=== PATIENT | female | born 1960 | race Two or more races ===

== ENCOUNTER → 2024-12-31 | Outpatient (CLI) | payer MEDICARE, MEDICAID, SELFPAY ==
--- NOTE | 2024-12-31 14:00 | XR_ITS ---
Examination: Bone densitometry Date and time of exam:December 31, 2024 1416 hours INDICATIONS: Menopause age 51 vitamin D 5 years Technique: Lumbar spine and hip total bone mineralization values of an calculated. Peak reference and age match control results have been displayed. Findings: Lumbar spine total bone mineralization is1.159 gm/cm2. This is 1.0 standard deviations above peak reference. This is 2.8 standard deviations above age-matched controls. Hip total bone mineralization is 0.988 gm/cm2 This is 0.2 standard deviations above peak reference. This is 1.3 standard deviations above age-matched controls Impression: There is normal mineralization based on lumbar spine measurements. There is normal mineralization based on hip measurements
== END | disposition home or self-care (01) ==
LOC: CDIM 13:54
PROVIDERS: Referring Provider Nurse Practitioner Primary Care; Visit Provider Nurse Practitioner Primary Care
DX: Z78.0 Asymptomatic menopausal state (principal)
CPT/HCPCS: 77080

== ENCOUNTER → 2025-05-12 | Outpatient (CLI) | payer MEDICARE, MEDICAID, SELFPAY ==
--- NOTE | 2025-05-12 13:30 | XR_ITS ---
Examination: Retroperitoneal ultrasound, complete Technique: Multiple high resolution grayscale images of the retroperitoneum obtained, including kidneys and bladder. Exam date and time:May 12, 2025 1404 hours INDICATIONS: Left-sided flank pain beginning 2 years ago FINDINGS: Right kidney 8.7 cm cortex 1.2 cm Left kidney 9.0 cm cortex 1.1 cm Lower pole left renal cyst 13 x 14 mm There appears to be free fluid above the left kidney Mild renal pedicle scar formation Contracted urinary bladder IMPRESSION: Small kidneys with bilateral renal cortical thinning No hydronephrosis There appears to be free fluid above the left kidney, consider CT scan abdomen pelvis without contrast follow-up
== END | disposition home or self-care (01) ==
PROVIDERS: PCP Nurse Practitioner Primary Care; Referring Provider Nurse Practitioner Primary Care; Visit Provider Nurse Practitioner Primary Care
DX: N27.1 Small kidney, bilateral (principal); N18.9 Chronic kidney disease, unspecified
CPT/HCPCS: 76770

== ENCOUNTER → 2025-06-05 | Outpatient (CLI) | payer MEDICARE, MEDICAID, SELFPAY ==
--- NOTE | 2025-06-05 13:45 | XR_ITS ---
Examination: Screening digital mammography, bilateral Computer aided detection 3-D breast Tomosynthesis, bilateral Date and time of exam: June 05, 2025 1338 hours Indication: Screening Technique: Nonmagnified MLO, CC views of the breasts to been obtained, reconstructed from 3-D Tomosynthesis images. R2 computer aided detection program utilized for evaluation of suspicious masses and/or abnormal calcifications. 3-D Tomosynthesis images obtained. Findings: Scattered areas of fibroglandular density Benign calcifications. No suspicious masses Impression: BI-RADS category II: Benign Findings. Recommend 1 year follow-up mammogram.
== END | disposition home or self-care (01) ==
LOC: CDIM 13:28
PROVIDERS: Referring Provider Nurse Practitioner Primary Care; Visit Provider Nurse Practitioner Primary Care
DX: Z12.31 Encounter for screening mammogram for malignant neoplasm of breast (principal); R92.323 Mammographic fibroglandular density, bilateral breasts; R92.1 Mammographic calcification found on diagnostic imaging of breast
CPT/HCPCS: 77063; 77067